=== PATIENT | male | born 1955 | race Caucasian/White ===

== ENCOUNTER → 2021-02-11 10:16 | Outpatient (BNVA) | payer OTHER, MEDICARE, SELFPAY | PROVIDERS: PCP Nurse Practitioner Family; Visit Provider Surgery | DX: K40.90 Unilateral inguinal hernia, without obstruction or gangrene, not specified as recurrent (principal); Z20.822 Contact with and (suspected) exposure to COVID-19 | CPT/HCPCS: 87635 ==

== ENCOUNTER 2021-02-17 06:56 | Day surgery (SDC) | payer OTHER, MEDICARE, SELFPAY ==
[2021-02-16 18:40] VITALS: BMI 25.3
[2021-02-17] VITALS (7 sets, daily range): BP systolic 114–134; BP diastolic 59–80; PULSE 63–83; RESP 16–20; TEMP 36.2–36.9; O2SAT 92–97
[2021-02-17] MEDS: sodium chloride 0.9% 1,000 ML 30 ML IV (07:33)
[2021-02-17] MEDS: acetaminophen 1,000 MG/100 ML PIGGYBACK 400 MG IV (07:34)
--- NOTE | 2021-02-17 08:11 | ANES.PREANE2 ---
Pre-Anesthetic Assessment Pre-Anesthetic Assessment: Height/Weight: Height 1.68 m Weight 71.214 kg Temp Pulse Resp BP Pulse Ox 97.7 F 75 18 129/80 95 02/17/21 07:21 02/17/21 07:21 02/17/21 07:21 02/17/21 07:21 02/17/21 07:21 Preop Diagnosis: Inguinal Hernia Proposed Procedure: Operation Date: 02/17/21 08:30 Proposed Procedures p lap right inguinal hernia with mesh placement 29404 K40.90(Right) - Lm Mejias MD Was Beta Judi taken within 24 hours: N/A Was Clonidine taken within 24 hours: N/A Last intake: Intake Last Liquid Date 02/16/21 Last Liquid Time 18:00 Last Solid Date 02/16/21 Last Solid Time 18:00 Social: Social History: Tobacco and No alcohol Exam: Pre-Anes Outpt Exam: alert, oriented x 3 and regular rate & rhythm Airway: Submandibular: WNL Cervical ROM: WNL MP: 2 Dentition: False Pulmonary: Pulmonary: COPD CV/HEM: CV/HEM: HTN GI: GI: GERD Metabolic: Metabolic: Hyperlipidemia Anesthetic Plan: ASA status: 3 Anesthesia: General Risk of > 500 ml blood loss (7ml/kg in children): No Meds/Allergies Current Medications: Current Medications Generic Name Dose Route Start Last Admin Trade Name Freq PRN Reason Stop Dose Admin Sodium Chloride 1,000 mls @ 30 ml s/hr 02/17/21 07:15 02/17/21 07:33 Sodium Chloride 0.9% IV 02/18/21 07:14 30 mls/hr .Q24H TOMÁS Administration PFSH Anesthesia PFSH: Family History Other CAD (coronary artery disease) Cancer Diabetes Hypertension Stroke Social History Smoking and tobacco status: current every day smoker cigarettes Alcohol intake: current Alcohol intake frequency: few times a week Lives independently: Yes Household members: spouse Data Anesthesia Cardiac Studies: No Data to Display
--- NOTE | 2021-02-17 09:08 | W.PM.OPSFHP ---
Same Day Surgery H&P Indication for Procedure/HPI DATE OF PROCEDURE: February 17, 2021 CHIEF COMPLAINT/INDICATIONFOR SURGICAL PROCEDURE: Right groin hurts PREOP DIAGNOSIS: Inguinal Hernia PLANNED PROCEDRUE: Operation Date: 02/17/21 08:30 Proposed Procedures p lap right inguinal hernia with mesh placement 65264 K40.90(Right) - Lm Mejias MD This is a pleasant 65 years old gentleman presents to my office with concern of symptomatic right inguinal hernia patient is escorted by his and recently had right kidney stone and has been having pain referred to the right inguinal scrotal area. Patient reports to me that he had this hernia for the past 15 years and lately started to bother him at least twice or thrice a week. Denies history of bowel obstruction or recent hospitalization. Yet he did have an x-ray that was done outside facility and he was told that he has a kidney stone. Patient also was told when he had a KUB that he is constipated. Patient is referred to my practice for further evaluation and potential intervention to fix his hernia. Interim history 02/17/2021 Patient comes today for laparoscopic right inguinal hernia repair with mesh placement. ROS All systems have been reviewed negative except as per the above or per problem list Medications/Allergies* Home Medications Medication Instructions Recorded Confirmed Type albuterol sulfate 90 mcg/actuation 1 inh INHALATION QID 12/24/20 02/17/21 History aerosol inhaler aspirin 81 mg tablet,delayed 81 mg PO DAILY 12/24/20 02/17/21 History release budesonide-formoterol HFA 160 2 puff INHALATION BID 12/24/20 02/17/21 History mcg-4.5 mcg/actuation aerosol inhaler lisinopril 5 mg tablet 5 mg PO DAILY 12/24/20 02/17/21 History omeprazole 40 mg capsule,delayed 40 mg PO DAILY 12/24/20 02/17/21 History release simvastatin 40 mg tablet 40 mg PO DAILY 12/24/20 02/17/21 History cholecalciferol (vitamin D3) 50 50 mcg PO DAILY 01/08/21 02/17/21 History mcg (2,000 unit) capsule tamsulosin [Flomax] 0.4 mg PO DAILY 02/17/21 02/17/21 History Allergies/Adverse Reactions Allergy/AdvReac Type Severity Reaction Status Date / Time atorvastatin [From Lipitor] Allergy Intermediate Unknown Verified 02/17/21 07:18 Current Medications: Generic Name Dose Route Start Last Admin Trade Name Freq PRN Reason Stop Dose Admin Sodium Chloride 1,000 mls @ 30 mls/hr 02/17/21 07:15 02/17/21 07:33 Sodium Chloride 0.9% IV 02/18/21 07:14 30 mls/hr .Q24H TOMÁS Administration Pertinent History/Comorbid Conditions* Family History (Updated 12/24/20 @ 14:28 by Tania Murry) Diabetes CAD (coronary artery disease) Cancer Hypertension Stroke Social History Smoking and tobacco status: current every day smoker cigarettes Alcohol intake: current Alcohol intake frequency: few times a week Lives independently: Yes Household members: spouse Pertinent Exam Findings oriented x 3, clear to auscultation bilaterally, regular rate & rhythm and operative site marked (Right groin area) Recommendations Surgery/Procedure today (Laparoscopic right inguinal hernia repair with mesh placement possible open) Coding Level of Care Code Acute Me[employer] Gr[employer] 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
--- NOTE | 2021-02-17 11:18 | P.OP_ITS ---
Operative Report Date of procedure: February 17, 2021 Pre-op Diagnosis: Inguinal Hernia Post-op diagnosis: other (Large right inguinal hernia) Post-op Findings: Small incidental finding of left groin hernia, patient reports no history OF symptoms with IT Procedure Done: Laparoscopic right inguinal hernia repair with mesh placement 3D large polypropylene Implants: Large 3D mesh Surgeon: Lm Mejias Brand Executive: Surgical carol Vargas and Nara Circulating nurses Meron and Myriam Anesthesia: General ([employer] Rivas and Rex) Estimated blood loss (mL): 10 IV fluids (mL): 400 Urine output (mL): 800 Condition: stable Disposition: same day Brief History: Symptomatic right inguinal hernia Procedure: Patient was identified in the holding area ,patient was taken to the operating room where he was placed in supine position, with both arms were tucked,antibiotic was given with induction, endotracheal tube was placed per anesthesia, Jeffery catheter was inserted by the circulating nurse and revealed clear urine, prep and drape of the abdomen including the external genitalia and scrotum was done under the usual sterile technique. Time-out was done verifying the patient's name/date of /planned procedure destination after the procedure, all were in agreement. SCDs confirmed to be functioning, preoperative antibiotics administered per protocol, and beta joceline protocol was confirmed. A vertical skin incision of 1.2 cm was made with 11 blade knife through the supra umbilicus , incision was carried down to the subcutaneous tissue and deepened to identify the anterior fascia, two stay sutures were applied to the fascia, and safe entrance to the abdominal cavity was achieved, a Hwang trocar technique safe entry to the abdominal cavity was achieved verified by using 10 mm zero degree laparoscopy, switched to a 30 degrees scope,low flow followed by a higher flow of CO2 gas up to 15 mmHg. There was no evidence of injury to intra-abdominal structures from the port entry, attention was deviated to both groins, there was a direct hernia defect with herniation of peritoneum and preperitoneal fat was noted on the right side, two 5 mm ports were placed on the right and left lateral aspects of the abdomen, under direct visualization, Exparel local was injected at all trocar sites prior to incisions. There was no evidence of small preperitoneal herniation on left side(patient gives no symptoms of left groin discomfort or pain or swelling) The peritoneum above the level of the iliopubic tract was incised to the left of the midline and dissection was performed to create a preperitoneal space medial to lateral aspect up to anterior superior iliac spine on the right side, using Enseal device.Dissection was continued onto the medial aspect and the right spermatic was identified, there was evidence of moderate indirect inguinal hernia .the sac was dissected As it applied medial to the right inferior epigastric vessels/ dissection was performed to clear the space lateral to the spermatic cord and dorsomedial to it, the hernia sac was reduced and retracted far back, so there was evidence of a larger direct inguinal hernia that was dissected. Then a medium size 3-D mesh was rolled and placed into the abdominal cavity through the Hwang port, after the mesh was introduced it was positioned to lie in the myopectineal orifice and the mesh was unrolled and this covered the entire my myope pectineal orifice. On the lateral aspect of the mesh extended up to the anterior superior iliac spine on the medial aspect the mesh crossed the midline onto the left side, then using absorbable tacks, placed above the iliopubic tract onto the rectus abdominis muscle on the medial aspect and also to the lateral abdominal wall superomedial to the sacroiliac spine, then the mesh was also anchored to the pubis and the Isac's ligament inferiorly. The peritoneal leaflets were then brought together to cover the mesh and isolated from the other viscera, extra tacks were used to secure the peritoneum in good position. There was a small defect in the peritoneum overlying the mesh and I elected to apply under direct visualization multiple 5 mm clips. Final look demonstrated good hemostasis and the mesh in good position and no evidence of intra-abdominal injuries or bleeding. A total of 20 mL Exparel 40 ml Normal saline 20 ml bupivacaine 0.25% were injected at the remaining of the tacks site and trocar sites as well Final look demonstrated good hemostasis.Then the fascia on the supra umbilical fascial defect was closed using #1 PDS sutures under direct visualization using fascial closure device Jon Tierney.All ports were removed,then the abdomen was desufflated. All skin incisions were closed with 3-0 Vicryl followed by 4-0 Monocryl subcuticular suture and Dermabond was applied. The patient tolerated the procedure well, Jeffery catheter was taken out and Scrotal support was placed,got extubated and was taken to the recovery area in stable condition. All counts of instruments, needles and sponges were completed I was present for the whole entire procedure
--- NOTE | 2021-02-17 11:47 | SUR.PHASEI ---
pt awake alert with good resp noted vss iv patent dressing d/i pt talkative on ra, denies pain and nausea
[2021-02-17] MEDS: HYDROcodone-acetaminophen 5-325 mg Tablet 1 TAB PO (12:13)
--- NOTE | 2021-02-17 14:56 | ANE.PACU2 ---
Inpatient post-anesthesia follow up: Airway intact: Yes Vital signs: Temperature 98.4 F Pulse Rate 74 Respiratory Rate 18 Blood Pressure 134/80 Pulse Oximetry 96 Oxygen Delivery Me thod Room Air Oxygen Flow Rate Fraction of Inspir ed Oxygen Hydration adequate: Yes Nausea and vomiting: No Pain level: 2 Mental status: Baseline
== END 2021-02-17 12:40 | disposition home or self-care (01) ==
PROVIDERS: PCP Nurse Practitioner Family; Visit Provider Surgery
PROC: (CPT 49650; principal; 2021-02-17 08:30)
DX: K40.20 Bilateral inguinal hernia, without obstruction or gangrene, not specified as recurrent (principal); Z79.82 Long term (current) use of aspirin; Z82.49 Family history of ischemic heart disease and other diseases of the circulatory system; F17.210 Nicotine dependence, cigarettes, uncomplicated; J44.9 Chronic obstructive pulmonary disease, unspecified; I10 Essential (primary) hypertension; K21.9 Gastro-esophageal reflux disease without esophagitis; E78.5 Hyperlipidemia, unspecified; Z83.3 Family history of diabetes mellitus
CPT/HCPCS: 49650; 51702; 96365; C1781; C9290; J0690; J1100; J2405; J2704; J2710; J3010; J3490; J7030

== ENCOUNTER 2021-05-12 15:06 | Outpatient (CLI) | payer OTHER, MEDICARE, SELFPAY ==
--- NOTE | 2021-05-12 15:15 | US_ITS ---
WS: [id number] Ultrasound pelvis. HISTORY: Recent hernia surgery. No palpable mass in the RIGHT groin. Palpable area in the RIGHT pelvis corresponds to a complex cystic mass without increased vascularity and this mass is well-circumscribed measuring 4.7 x 3.8 x 5.2 cm. This is consistent with a hematoma with partial resolution in liquefaction. No additional abnormality noted. US/US pelvic complete* 52126 IMPRESSION: Partially liquefied thick-walled hematoma at the RIGHT groin.
== END 2021-05-12 15:07 | disposition home or self-care (01) ==
LOC: RAD 15:13
PROVIDERS: PCP Nurse Practitioner Family; Visit Provider Surgery
DX: S30.1XXA Contusion of abdominal wall, initial encounter (principal); X58.XXXA Exposure to other specified factors, initial encounter; D18.09 Hemangioma of other sites
CPT/HCPCS: 76856

== ENCOUNTER 2022-11-05 07:48 | Day surgery (SDC) | payer OTHER, MEDICARE, SELFPAY ==
[2022-11-04 10:23] VITALS: BMI 25.0
[2022-11-05 08:07] VITALS: BP 177/91; PULSE 78; RESP 16; TEMP 36.7; O2SAT 97
[2022-11-05] MEDS: sodium chloride 0.9% 1,000 ML 30 ML IV (08:15)
--- NOTE | 2022-11-05 08:49 | P.ANESASSM_ITS ---
Pre-Anesthetic Assessment Height/Weight: Height 1.68 m Weight 70.307 kg Temp Pulse Resp BP Pulse Ox O2 Del Method 98.0 F 78 16 177/91 97 11/05/22 08:07 11/05/22 08:07 11/05/22 08:07 11/05/22 08:07 11/05/22 08:07 11/05/22 08:07 Preop Diagnosis: history of colon polyps Operation Date: 11/05/22 09:15 Proposed Procedures p 20776 Colon Z86.010(Not Applicable) - Ej Bay DO Familial anesthetic complications: none Was Beta Judi taken within 24 hours: N/A Was Clonidine taken within 24 hours: N/A Last intake: Intake Last Liquid Date 11/04/22 Last Liquid Time 22:00 Last Solid Date 11/03/22 Social Alcohol (1 drink a day) and Tobacco Exam alert, oriented x 3, clear to auscultation bilaterally and regular rate & rhythm Airway Submandibular: within normal limits Cervical ROM: within normal limits Mallampati: Class II Dentition: partials Pulmonary Chronic Obstructive Pulmonary Disease, Cough and Exertional Dyspnea CV/HEM Hypertension None reported Hepatic None reported GI Gastroesophageal Reflux Disease (controlled) Metabolic Hyperlipidemia [facility] [place] Lower Back Pain Neuropsych None reported Anesthetic Plan ASA status: 3 Anesthesia: MAC Risk of > 500 ml blood loss (7ml/kg in children): No Medications/Allergies Home Medications Medication Instructions Recorded Confirmed Last Taken Type albuterol sulfate 90 mcg/actuation 1 inh inhalation QID PRN Shortness 12/24/20 11/05/22 3 Months Ago History aerosol inhaler Of Breath ~08/06/22 aspirin 81 mg tablet,delayed 81 mg PO DAILY 12/24/20 11/05/22 10/31/22 History release budesonide-formoterol HFA 160 2 puff inhalation BID 12/24/20 11/05/22 11/04/22 History mcg-4.5 mcg/actuation aerosol inhaler (Symbicort) lisinopril 5 mg tablet 5 mg PO DAILY 12/24/20 11/05/22 11/03/22 History omeprazole 40 mg capsule,delayed 40 mg PO DAILY 12/24/20 11/05/22 11/03/22 History release simvastatin 40 mg tablet 40 mg PO DAILY 12/24/20 11/05/22 11/03/22 History tamsulosin 0.4 mg capsule (Flomax) 0.4 mg PO DAILY 02/17/21 11/05/22 11/03/22 History Allergies Allergy/AdvReac Type Severity Reaction Status Date / Time atorvastatin [From Lipitor] Allergy Intermediate Unknown Verified 11/05/22 08:05 Current Medications Generic Name Dose Route Start Last Admin Trade Name Freq PRN Reason Stop Dose Admin Sodium Chloride 1,000 mls @ 30 mls/hr 11/05/22 08:00 11/05/22 08:15 Sodium Chloride 0.9% IV 11/06/22 07:59 30 mls/hr .Q24H TOMÁS Administration PFSH Anesthesia Medical History (Updated 11/03/22 @ 17:14 by Ej Bay DO) COPD (chronic obstructive pulmonary disease) GERD (gastroesophageal reflux disease) Hyperlipidemia Hypertension Kidney stone on right side Right inguinal hernia Surgical History (Updated 11/03/22 @ 17:14 by Ej Bay DO) History of colonoscopy with polypectomy 2018 History of inguinal hernia repair Family History Brother Cancer COLON Mother Cancer OVARIAN Father Cancer PROSTATE CANCER Other CAD (coronary artery disease) Diabetes Hypertension Stroke Social History Smoking and tobacco status: current every day smoker cigarettes Packs smoked per day: 1 Years cigarettes smoked: 50 Alcohol intake: current Alcohol intake frequency: few times a week Lives independently: Yes Household members: spouse Data Anesthesia Cardiac Studies: No Data to Display
--- NOTE | 2022-11-05 09:12 | W.PM.OPSUD ---
Surgery/Procedure H&P Update DATE OF PROCEDURE: November 05, 2022 DATE H&P PERFORMED: 11/03/22 H&P UPDATE INFORMATION: I have reviewed H&P completed within last 30 days, I have examined patient prior to procedure and No changes to prior documentation PREOP DIAGNOSIS: history of colon polyps PLANNED PROCEDURE: Operation Date: 11/05/22 09:15 Proposed Procedures p 70982 Colon Z86.010(Not Applicable) - Ej Bay DO
[2022-11-05 09:43] VITALS: BP 113/61; PULSE 74; RESP 14; TEMP 36.1; O2SAT 96
[2022-11-05 09:50] VITALS: BP 145/77; PULSE 69; RESP 18; O2SAT 95
--- NOTE | 2022-11-05 11:34 | ANE.PACU2 ---
Inpatient post-anesthesia follow up: Airway intact: Yes Vital signs: Temperature 97.0 F Pulse Rate 69 Respiratory Rate 18 Blood Pressure 145/77 Pulse Oximetry 95 Oxygen Delivery Me thod Room Air Oxygen Flow Rate Fraction of Inspir ed Oxygen Hydration adequate: Yes Nausea and vomiting: No Pain level: 1 Mental status: Baseline
== END 2022-11-05 10:03 | disposition home or self-care (01) ==
PROVIDERS: PCP Nurse Practitioner Family; Visit Provider Surgery
PROC: 0DJD8ZZ Inspection of Lower Intestinal Tract, Via Natural or Artificial Opening Endoscopic (ICD-10-PCS; CPT 45378; principal; 2022-11-05 09:15)
DX: D12.3 Benign neoplasm of transverse colon (principal); D12.8 Benign neoplasm of rectum; Z86.010 Personal history of colon polyps; J44.9 Chronic obstructive pulmonary disease, unspecified; I10 Essential (primary) hypertension; K21.9 Gastro-esophageal reflux disease without esophagitis; E78.5 Hyperlipidemia, unspecified; Z79.82 Long term (current) use of aspirin; F17.210 Nicotine dependence, cigarettes, uncomplicated; Z80.0 Family history of malignant neoplasm of digestive organs; K59.00 Constipation, unspecified
CPT/HCPCS: 45385; 88305; J2704; J7030

== ENCOUNTER → 2022-11-10 14:10 | Outpatient (BNVA) | payer MEDICARE, OTHER, SELFPAY | PROVIDERS: PCP Nurse Practitioner Family; Visit Provider Surgery | DX: Z86.010 Personal history of colon polyps (principal) | CPT/HCPCS: 99024; 99212 ==